=== PATIENT | male | born 1955 | race Caucasian/White ===

== ENCOUNTER 2022-07-14 06:16 | Day surgery (SDC) | payer BC, MEDICARE ==
[2022-07-12 13:41] VITALS: BMI 33.2
[2022-07-14] MEDS ORDERED: PROPOFOL 40 ML ONE (09:03)
[2022-07-14] MEDS ORDERED: Lidocaine 2% PF 100 mg/5 ml Syringe ONE (09:32)
[2022-07-14] MEDS ORDERED: Lidocaine 2% MPF 10 ML AMP (For Epidural Use) ONE (09:32)
== END 2022-07-14 10:12 | disposition home or self-care (01) ==
LOC: CSHSDC 06:16
PROVIDERS: ATTEND Internal Medicine Gastroenterology
PROC: 0DBP8ZX Excision of Rectum, Via Natural or Artificial Opening Endoscopic, Diagnostic (ICD-10-PCS; principal; 2022-07-14)
DX: K63.5 Polyp of colon (principal); K64.9 Unspecified hemorrhoids; I10 Essential (primary) hypertension; E11.40 Type 2 diabetes mellitus with diabetic neuropathy, unspecified; Z88.2 Allergy status to sulfonamides; Z79.899 Other long term (current) drug therapy; Z79.84 Long term (current) use of oral hypoglycemic drugs
CPT/HCPCS: 88305; J2001; J2704

== ENCOUNTER 2023-03-29 12:16 | Outpatient (CLI) | payer BC, MEDICARE | END 2023-03-29 12:17 | disposition home or self-care (01) | LOC: CSHMRI 12:16 | PROVIDERS: ATTEND Anesthesiology Pain Medicine | DX: M47.26 Other spondylosis with radiculopathy, lumbar region (principal) | CPT/HCPCS: 72148 ==